=== PATIENT | female | born 1945 | race Caucasian/White ===

== ENCOUNTER → 2022-06-25 12:42 | Outpatient (CLI) | payer MEDICARE, OTHER, SELFPAY ==
[2022-06-25 13:30] LABS: Add Manual Diff / Slide Review NO; Basophils Absolute Auto 100 /uL (0-100); Basophils Percent Auto 0.7 % (0-2); Eosinophils Absolute Auto 100 /uL (0-450); Eosinophils Percent Auto 1.6 % (2-4); Hematocrit 38.8 % (36-46); Hemoglobin 13.1 g/dL (12.0-16.0); Lymphocytes Absolute Auto 1200 /uL (1100-4500); Lymphocytes Percent Auto 16.5 % (25-40); Mean Corpuscular HGB Conc 33.9 % (30-36); Mean Corpuscular Hemoglobin 30.5 PG (26-34); Mean Corpuscular Volume 90.2 fL (80-100); Monocytes Absolute Auto 400 /uL (0-900); Monocytes Percent Auto 6.3 % (3-14); Neutrophils Absolute Auto 5400 /uL (1500-7000); Neutrophils Percent Auto 74.9 % (50-75); Platelet Count 215 X10^3/uL (150-400); Red Blood Cell Count 4.31 X10^6/uL (4.0-5.2); Red Cell Distribution Width 14.7 % (11.6-14.8); White Blood Cell Count 7.2 X10^3/uL (4.5-11.0)
[2022-06-25 14:09] LABS: BUN Creatinine Ratio 25.4 (6-22); Blood Urea Nitrogen 17 mg/dL (7-17); Calcium 9.1 mg/dL (8.4-10.2); Carbon Dioxide 26 mmol/L (22-32); Chloride 102 mmol/L (98-107); Estimated Glomerular Filt Rate > 60 mL/min (>60); Glucose 117 mg/dL (80-110); HEMOLYSIS 32 (0-50); Potassium 4.3 mmol/L (3.4-5.1); Sodium 139 mmol/L (137-145)
== END ==
PROVIDERS: PCP Nurse Practitioner Family; Referring Provider Orthopaedic Surgery Orthopaedic Surgery of the Spine; Visit Provider Orthopaedic Surgery Orthopaedic Surgery of the Spine
DX: Z01.818 Encounter for other preprocedural examination (principal); Z01.812 Encounter for preprocedural laboratory examination
CPT/HCPCS: 36415; 80048; 85025; 93005

== ENCOUNTER 2022-07-23 07:39 | Inpatient (IN) | payer MEDICARE, OTHER, SELFPAY ==
[2022-07-12 09:42] VITALS: BMI 34.7
[2022-07-23] VITALS (15 sets, daily range): BP systolic 98–157; BP diastolic 45–80; PULSE 83–99; RESP 12–20; TEMP 36.6–37.5; O2SAT 90–98; BMI 34.7; BMI 36.8
--- NOTE | 2022-07-23 | DI.RAD.S_ITS ---
PROCEDURE: XR LUMBAR SPINE 2-3V INDICATIONS: L4-5 TLIF TECHNIQUE: Low resolution intraoperative fluoroscopic spot films of the lower lumbar spine COMPARISON: None. FINDINGS: Low resolution fluoroscopic spot films show instrumented L4-5 discectomy and fusion IMPRESSION: Fluoroscopic guidance Approved by: Haseeb El M.D. on 07/23/2022 at 17:13
[2022-07-23 08:11] LABS: COVID19 -Nasal RAPID Negative (Negative)
[2022-07-23] MEDS: LACTATED RINGERS 1,000 ML 42 ML IV ×2 (08:30→10:49)
--- NOTE | 2022-07-23 08:55 | PM.PREOP ---
Pre-operative Note COVID-19 COVID-19 status: Negative Result date/Date tested (Pos, Neg/Pending): 07/22/22 Criteria for continued procedure: Expected advancement of disease process, Possibility delay results in more complex future surgery or treatment, Increased loss of function, Continuing or worsening of significant or severe pain, Deterioration of the patient's condition or overall health and Delay expected to result in less-positive ultimate med/surg outcome Interval Note History & Physical reviewed/Exam performed by Physician: Yes Changes to H&P: No
[2022-07-23] MEDS: CEFAZOLIN 2 GM/100 ML PREMIX 100 ML IV ×2 (09:38→17:09)
--- NOTE | 2022-07-23 10:05 | SUR.OPER ---
Prone on spine table, head in foam head support, padded chest and pelvic supports, gel pad at knees, lower legs supported by pillows; nipples, genitalia and toes free of pressure, arms secured on foam padded arm boards at <90 degrees abduction. Tape over blanket at thigh secured to table.
[2022-07-23] MEDS: BUPIVACAINE LIPOSOME 266 MG/20 ML VIAL INJ (10:13)
[2022-07-23] MEDS: BUPIVACAINE 0.25% (PF) 30 ML, EPINEPHrine 0.3 MG INJ (10:13)
[2022-07-23] MEDS: BUPIVACAINE 0.25% (PF) VIAL 30 ML INJ (10:15)
--- NOTE | 2022-07-23 11:55 | P.OP_ITS ---
Operative Date/Time/Diagnoses Date of procedure: 07/23/22 Time of procedure: 10:00 Pre-op diagnosis: 1. L4-5 spondylolisthesis 2. L4-5 spinal stenosis Post-op diagnosis: same Procedure & Clinicians Procedure: 1. L4-5 Postero-lateral and posterior interbody fusion 2. L4-5 interbody cage placement. 3. L4-5 decompressive laminectomy with bilateral facetecomies 4. L4-5 Posterior non-segmental instrumentation 5. Oxford of bone marrow from iliac crest 6. Utilization of microsurgical technique and operating microscope Same procedure as scheduled: Yes Indications: Patient has been having chronic back pain and worsening lumbar radiculopathy. Patient failed multiple conservative management with worsening pain weakness and numbness in her lower extremity. Patient has been having difficulty performing activity of daily living. After discussing risks benefits of treatment options, patient elected proceed with surgery. Surgeon: Yoseph Brase[address] Train Driver: Graciela Smith Click Yes if Unassisted: No Anesthesia Type: General Operative Notes Closure Type: primary Specimen(s): none sent Prosthetic devices, grafts, tissues, transplants, or devices: Globus revolve screws, Rise cage Estimated Blood Loss (mL): 50 Blood products transfused: none Procedure in detail: Patient was seen in the preoperative area. Risks and benefits of the surgery was discussed with the patient. Informed consent was obtained from the patient and placed in the chart. Surgical site was marked. Patient was taken to the operative room. General anesthesia was administered. Prophylactic antibiotic was given to the patient less than 30 min before the incision was made. Patient was placed into a prone position on the Wayne table. Patient's back was then prepped and draped in the sterile fashion. Time-out was performed at this time. Using AP and lateral C-arm imaging the interval between L4-5 was identified and marked on patient's back. A 2 inch incision 2 in from midline was made on the left side first. The fascia was incised in line with skin incision. Globus MARS retractors was placed inside the incision and docked onto the L4 lamina. Using microsurgical technique and operating microscope, a L4 laminectomy and L4-5 facetectomy was performed using a Kerrison rongeur. The disc space at L4-5 was identified. And a total diskectomy was performed at L4-5 level. The endplates were decorticated using a rasp and shaver. The total diskectomy and decortication was performed at L4-5 level in order to to accomplish a L4-5 fusion. The local bone from the laminectomy and facetectomy was saved for local bone grafting. After the total diskectomy and decortication was completed, Trifecta bone graft material was combined with local bone that was harvested earlier. At this time, a separate skin is incision was made over the iliac crest. A Jamshidi needle was inserted into the iliac crest through a separate skin incision. 5 cc of bone marrow aspiration was obtained through the separate skin incision using a Jamshidi needle from the iliac crest. The bone marrow aspiration was combined with local bone and the Trifecta bone grafting material. The bone grafting material was placed into the L4-5 interbody space along with a expandable cage. The cage was expanded to its maximum height using the torque limiting screwdriver. At this time a mirror image incision was made on the right side. The fascia was incised in line with the skin incision. Globus MARS retractor was inserted and docked onto the L4-5 posterolateral gutter. Using the power drill, posterior- lateral decortication was performed at L4-5 level until bleeding cortical bone was identified. The remaining bone grafting material was placed into the L4-5 posterior lateral gutter he order to accomplish posterolateral fusion at the L4- 5 level. Using the double C-arm technique, pedicle screws were placed into the L4-5 pedicles bilaterally. This was done by placing the Jamshidi needle into the pedicles, then placing the guidewires over the Jamshidi needle, and finally placing the cannulated screws over the guidewires bilaterally. After the pedicle screws were placed, 2 titanium rods was locked into the heads of the pedicle screws using locking caps and torque limiting screwdriver. After all the hardware was placed, and confirmed with AP and lateral C-arm imaging, the wound was then irrigated with sterile normal saline and packed with Ray-Warren gauze for 3 min to accomplish hemostasis. After the gauze was removed the deep fascia was closed with #1 Vicryl suture. The subcutaneous layer was closed with 2-0 Vicryl. The skin was closed with skin daisy. Patient tolerated the procedure well. There were no complications. Complications: none Post-operative Condition: stable Disposition: PACU Plan for aftercare: Admit to inpatient hospital
[2022-07-23] MEDS: OXYCODONE/ACETAMINOPHEN 5/325 TABLET 1 TAB PO (12:08)
[2022-07-23] MEDS: fentaNYL 100 MCG/2 ML INJ IV ×2 (12:11→12:18)
--- NOTE | 2022-07-23 12:22 | SUR.PHASEI ---
rolled to left side, pt states some relief from pain being off back. dressing CDI
--- NOTE | 2022-07-23 12:43 | SUR.PHASEI ---
taken to room 204, report called. all belongings with patient
[2022-07-23] MEDS: HYDROMORPHONE 0.5 MG INJ IV ×2 (13:06→17:06)
[2022-07-23] MEDS: hydrOXYzine pamoate 25 MG CAPSULE PO (13:07)
--- NOTE | 2022-07-23 13:39 | PT-IP ANOTE ---
Patient lying in bed and at bedside. Pt just up to the floor. States cannot possibly get up at this point. Discussed care with patient and and stated with staffing, it likely will not be until tomorrow until they can be seen if they decline PT now. They agree with this plan, state there are no stairs in their home, they have a walker.
[2022-07-23] MEDS: ACETAMINOPHEN 325 MG TABLET 650 MG PO ×2 (13:42→19:06)
--- NOTE | 2022-07-23 15:25 | OT.IP.TRT ---
Current Diagnoses Spondylolisthesis, lumbar region (07/23/22) Spinal stenosis, lumbar region with neurogenic claudication (07/23/22) Surgery Performed Operation Date: 07/23/22 09:15 Actual Procedures p L4-5 TLIF - Yoseph Braswell MD Occupational Therapy Treatment Note M2 OT-IP Current Condition Start: 07/23/22 15:27 Freq: Status: Active Protocol: Document 07/23/22 14:37 [facility] (Rec: 07/23/22 15:55 [facility] [id number]) Occupational Therapy Current Condition Current Condition Evaluation Date 07/23/22 Treatment Diagnosis S/p TLIF Diagnosis Onset Date 07/23/22 Post Operative Precautions Lumbar Precautions Log Roll,No Twisting,Limit Bending,Lifting Restriction of 10 lbs,Gait Belt above Incisional Area M3 OT- IP Subjective and Pain Start: 07/23/22 15:27 Freq: Status: Active Protocol: Document 07/23/22 14:37 [facility] (Rec: 07/23/22 15:55 [facility] [id number]) OT- Subjective Occupational Therapy Visit Type Type Treatment Note Visit Start Time 14:37 Visit Stop Time 15:20 Total Visit Minutes 43 Occupational Therapy Visit Comments Patient Comments Pt agreed to try to get up again as just got in bed from use of BSC with nursing. Patient/Caregiver Goals TO go home. OT Pain Assessment Pain When Pain Assessed At Rest Pain Present Pain Present Pain Reported Location Back Intensity 6 Scale Used Numeric (0 - 10) M4 OT- IP ADL's Start: 07/23/22 15:27 Freq: Status: Active Protocol: Document 07/23/22 14:37 [facility] (Rec: 07/23/22 15:55 [facility] [id number]) OT [id number] Comments OT Self-Feeding Comments not at meal time OT ADL-Grooming Comments OT Grooming Comments not able to perform OT ADL-Oral Care Comments Oral Care Comments Educated best to spit into a cup or hinge at her hips to best follow her back precautions. OT ADL-Dressing Comments OT Dressing Comments Pt typically cross her legs for dressing needs but will now benefit from assist and LB dressing equipment. OT ADL-Toileting Comments OT Toileting Comments Wayne states from pt's side of the bed is 15 ft to the toilet and not able to get the FWW into the bathroom. Therefore discussed maybe best to just get a BSC and have it placed next to the bed. Pt wears a Depends at night and gets up 2 times at night. OT ADL-Bathing Comments OT Bathing Comments Pt has a shower chair for the tub. M5 OT- IP IADL's Start: 07/23/22 15:27 Freq: Status: Active Protocol: Document 07/23/22 14:37 [facility] (Rec: 07/23/22 15:55 [facility] [id number]) OT-Instrumental Activities of Daily Living Home Safety Awareness Home Safety Comments Pt's has a very supportive that will assist with her needs. M6 OT- IP Functional Cognition Start: 07/23/22 15:27 Freq: Status: Active Protocol: Document 07/23/22 14:37 [facility] (Rec: 07/23/22 15:55 [facility] [id number]) Cognitive Factors Limiting Selfcare Function Cognitive Ability Level of Alertness Drowsy Patient Orientation Name,Place,Situation Attention Span Ability Capable of Focused Attention, Capable of Sustained Attention Cognitive Comments Cognitive Assessment Comments Initially pt alert and then after several minutes quiet and not feeling well BP stable 113/57, O2 on 2L and at 96%. Pt's nurse come in to check on the pt and determined to connect her back to the IV, pt proceeded to fall asleep. M9 OT- IP Assessment and Plan Start: 07/23/22 15:27 Freq: Status: Active Protocol: Document 07/23/22 14:37 [facility] (Rec: 07/23/22 15:55 [facility] [id number]) OT Summary Assessment and Plan Summary Assessment Summary Tried to do OT eval with pt but pt looking pale and not feeling well. Nursing able to come to check on the pt. Pt then proceeding to fall asleep . Able to initially go over ADl needs with Pt and her of getting a BSC, use of LB dressing equipment- before pt feeling not well and eventually fell asleep. Afterwards able to educate pt' s how to kirby/doff the gait belt, did bed mobility with pt's on the bench seating so pt's aware of the technique for log rolling and how to assist. Went over hand placement how to come up to standing and sitting back down, in addition to always have the FWW in front. Also able to go over car transfers with pt's . Unable to do formal OT eval with pt therefore no charge for OT eval and will charge under OT treatment. Able to set-up time for pt's to work with PT tomorrow at 9am.
[2022-07-23] MEDS: OXYCODONE IR 10 MG TABLET PO ×3 (15:47→22:56)
[2022-07-23] MEDS: GABAPENTIN 300 MG CAPSULE PO ×2 (15:48→20:15)
[2022-07-23] MEDS: LACTATED RINGERS 1,000 ML 100 ML IV (17:00)
[2022-07-23] MEDS: CREON 2 EACH PO (17:09)
[2022-07-23] MEDS: PANTOPRAZOLE DR 20 MG TABLET PO (17:27)
--- NOTE | 2022-07-23 19:45 | PC.NURSE ---
Pt arrived from PACU at approximately 1300 A&OX4. VSS, afebrile on 2 LNC. She reports pain well controlled with prn medications. She is able to tolerate lunch and dinner and get up to bsc. dressing to back C/D/I. Bed alarm on, SCDS on.call light in reach. LR at 100 ml/hr. She is using IS.Continuous monitoring.
[2022-07-23] MEDS: LOSARTAN 50 MG TABLET PO (21:29)
[2022-07-23] MEDS: DOCUSATE 100 MG CAPSULE PO (21:30)
[2022-07-23] MEDS: SENNOSIDES 8.6 MG TABLET 17.2 MG PO (21:30)
[2022-07-23] MEDS: TRAZODONE 50 MG TABLET 100 MG PO (22:56)
[2022-07-24] MEDS: ACETAMINOPHEN 325 MG TABLET 650 MG PO ×3 (00:56→11:40)
[2022-07-24] MEDS: CEFAZOLIN 2 GM/100 ML PREMIX 100 ML IV (00:57)
[2022-07-24 03:19] VITALS: BP 129/69; PULSE 81; RESP 18; TEMP 36.6; O2SAT 97
[2022-07-24] MEDS: OXYCODONE IR 10 MG TABLET PO ×2 (06:20→09:41)
[2022-07-24] MEDS: CREON 2 EACH PO ×2 (07:48→11:43)
[2022-07-24] MEDS: PANTOPRAZOLE DR 20 MG TABLET PO (07:48)
[2022-07-24 08:33] VITALS: BP 126/69; PULSE 85; RESP 17; TEMP 36.3; O2SAT 94
[2022-07-24 09:41] VITALS: BP 126/69; PULSE 85
[2022-07-24] MEDS: LOSARTAN 50 MG TABLET PO (09:41)
[2022-07-24] MEDS: ESCITALOPRAM 10 MG TABLET PO (09:41)
[2022-07-24] MEDS: polyethylene glycoL 3350 17 GM POWD.PACK PO (09:42)
[2022-07-24] MEDS: DOCUSATE 100 MG CAPSULE PO (09:42)
[2022-07-24] MEDS: GABAPENTIN 300 MG CAPSULE PO (09:42)
--- NOTE | 2022-07-24 10:17 | PT.IIE ---
Current Diagnoses Spondylolisthesis, lumbar region (07/23/22) Spinal stenosis, lumbar region with neurogenic claudication (07/23/22) Surgery Performed Operation Date: 07/23/22 09:15 Actual Procedures p L4-5 TLIF - Yoseph Braswell MD Surgical History (Last Updated 07/12/22 @ 11:07 by Anna Carver, RN) History of esophagogastroduodenoscopy (EGD) History of hysterectomy History of surgery (03/2016) History of surgical procedure Hx of arthroscopy of right knee Hx of bilateral cataract extraction (2020) Hx of colonoscopy Hx of tonsillectomy Hx of tubal ligation S/P epidural steroid injection Medical History (Last Updated 07/12/22 @ 11:07 by Anna Carver, RN) Anxiety Asthma 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 Depression Diverticulosis DVT (deep venous thrombosis) (~2016) GERD (gastroesophageal reflux disease) History of COVID-19 (10/2021) HTN (hypertension) Palpitations Pancreatic cancer (2015) Pericarditis Presence of device Pulmonary embolism (~2016) Sleep apnea Spinal stenosis Physical Therapy Inpatient Evaluation/Re-Eval M1 PT/OT-IP Prior Functional Status Start: 07/23/22 13:39 Freq: NEEDED Status: Active Protocol: Document 07/24/22 09:46 [facility] (Rec: 07/24/22 10:10 [facility] [id number]) Medical Review Prior Functional Status Communication independent Activities of Daily Living and IADL's Pt able to do ADl needs but had pain. Social History Household Members spouse Living Arrangements Mobile home Number of Floors (Floors) One Floor Number of Stairs To Enter/Railing? ramp to enter Home Environment High Toilet,Tub/Shower,Ramp Home Equipment Front Wheel Walker,Four Wheel Walker,Grab Bars Near Toilet Employment Status Retired Additional Social History Comment Pt typically gets out of the left side of the bed. Pt has a supportive , Wayne. Wayne states he has back issues himself but still able to provide some lifting assist to pt as needed. Pt had difficulty lifting legs to get into tub/shower. M2 PT-IP Current Condition Start: 07/23/22 13:39 Freq: NEEDED Status: Active Protocol: Document 07/24/22 09:46 [facility] (Rec: 07/24/22 10:10 [facility] [id number]) Physical Therapy Current Condition Current Condition Evaluation Date 07/24/22 Treatment Diagnosis s/p TLIF Onset Date 07/23/22 M3 PT-IP Subjective Start: 07/23/22 13:39 Freq: NEEDED Status: Active Protocol: Document 07/24/22 09:46 [facility] (Rec: 07/24/22 10:10 [facility] [id number]) Subjective Physical Therapy Visit Type Type Initial Evaluation Visit Start Time 09:07 Visit Stop Time 09:46 Total Visit Minutes 39 Physical Therapy Visit Comments Patient Comments States she has been up with nursing. Sat on bed for breakfast. Patient Goals Pt goal is to go home today or tomorrow. Therapy Pain Assessment Pain When Pain Assessed At Rest Pain Present Pain Present Pain Reported Location Back Intensity 2 Scale Used Numeric (0 - 10) Pain Management Techniques Apply Cold M4 PT-IP Mobility and Gait Start: 07/23/22 13:39 Freq: NEEDED Status: Active Protocol: Document 07/24/22 09:46 [facility] (Rec: 07/24/22 10:10 [facility] [id number]) PT-Bed Mobility Assessment Rolling Type of Rolling Log Rolling Level of Assist Contact Guard Assistance Supine to Sit Supine to Sit Contact Guard Assistance, Minimal Assistance Sit to Supine Sit to Supine Contact Guard Assistance, Minimal Assistance Scooting Scooting to Edge of Bed Independent,Standby Assistance PT-Transfer Assessment Sit to and From Stand Sit to and from Stand Standby Assistance Equipment Transfer Assistive Device Gait Belt,Front Wheeled Walker Orthotic/Prosthetic Devices or Brace: No Transfers Transfer Destination Bed Transfer Technique Walked to and from bed Transfer Ability Level of Assist Standby Assistance,Contact Guard Assistance Comments Mobility Comments Pt required many standing rests to reposition body to upright. Gait Assessment Gait Gait Assistance Required: Standby Assistance Distance (Feet) 110 Able to Maintain Weight Bearing Status Yes During Gait Assistive Devices Assistive Device Gait Belt,Front Wheeled Walker Orthotic/Prosthetic Devices or Brace: No Gait Deviations General Gait Pattern Decreased Stride Length, Decreased Feet Clearance, Flexed Trunk Factors Limiting Gait Function Factors Limiting Gait Function Decreased Activity Tolerance, Pain Comments Gait Comments Pt ambulated slow and cautious , stopping every 6-8' to stand upright and reposture due to mildly leaning into FWW for balance support. Pt did not note an increase in pain, but noted pt appeared fatigued. PT-Balance Assessment Sitting Balance and Reactions Static Sitting Balance Ability Good Dynamic Sitting Balance Ability Good Standing Balance and Reactions Static Standing Balance Ability Good Dynamic Standing Balance Ability Good Device Used FWW M5 PT-IP Objective Assessments Start: 07/23/22 13:39 Freq: NEEDED Status: Active Protocol: Document 07/24/22 09:46 [facility] (Rec: 07/24/22 10:10 [facility] [id number]) Orientation Orientation/Cognition Level of Alertness Alert Orientation Name,Month,Date,Year,Place, Situation Language Function Ability No Deficits Noted Safety Awareness Understands Safety Issues Comments Pt able to recall 3/3 movement precautions: No forced bending, no twisting, no lifting heavy (>10# reviewed), log roll. Gross Range of Motion Upper Extremity ROM Assessment Within Functional Limits Lower Extremity ROM Assessment Within Functional Limits Strength Upper Extremity Strength Assessment Within Functional Limits Lower Extremity Strength Assessment Within Functional Limits Sensation Assessment Sensation Gross Sensation WNL Muscle Tone Muscle Tone WNL Yes Other Assessments Other Other Assessments Pt appeared to be following movement precautions. M6 PT-IP Treatment Start: 07/23/22 13:39 Freq: NEEDED Status: Active Protocol: Document 07/24/22 09:46 [facility] (Rec: 07/24/22 10:10 [facility]N [id number]) Physical Therapy Treatment Education Education Provided Post-Op Packet Other Treatments Other Treatment Performed Pt spouse present throughout Eval/treatment. Reviewed precaution not to force bend at trunk when moving legs in/out of tub. Reviewed transfer options of getting into tub in standing and sitting in tub chair positions. Recommended pt avoid prolonged sitting greater than 30 minutes. Transfer training for log rolling and sidelie<>sit<> stand. M7 PT-IP Assessment and Plan Start: 07/23/22 13:39 Freq: NEEDED Status: Active Protocol: Document 07/24/22 09:46 [facility] (Rec: 07/24/22 10:10 [facility]N [id number]) PT Summary Assessment and Plan Potential Rehabilitation Potential Excellent Status of Condition at Evaluation Evolving Summary Impairments Pain,Bed Mobility,Transfers, Activity Tolerance Assessment Summary Pt seen po day 1 for initial eval. Pt required trainingand min assist for proper transfers in/out of bed with spouse present to observe for helping at home. Pt did very well and showed minimal signs of movement restriction due to pain. The pt pt was able to ambulate 100+ feet with frequent standing rest stops and appeared very aware of her posture with recorrection of her mild leaning forward during gait. The pt required very little assist to get back in bed and demonstrated good independent bed mobility. The pt's pain appears well controlled and she has a very supportive who understands how he can assist the patient at home. The pt might benefit from another day of review for bed mobility and transfers, but is quite safe currently with ability to mobilize (although not independent and will need spouse to asssit), and ambulate if she chooses to DC home today. Goals Bed Mobility Goal Contact Guard Assistance, Minimal Assistance Transfer Goal Contact Guard Assistance, Minimal Assistance Gait Goal Standby Assistance Gait Distance 100+ feet Days to Meet Goals 1 Frequency of Treatment Frequency Of Treatment Twice a Day Treatment Plan Physical Therapy Treatment Plan Bed Mobility Training,Transfer Training,Gait Training,Post Op Education Precautions Lumbar Precautions Log Roll,No Twisting,Limit Bending,Lifting Restriction of 10 lbs,Gait Belt above Incisional Area Weight Bearing Status Weight Bearing Status Weight Bear as Tolerated Recommendations To Nursing Amount of Assist Needed Standby Assistance,1 Person Assist Discharge Recommendations PT Discharge Recommendations Home with Assistance Other Discharge Recommendations Spouse to assist at home. Transportation Needs at Discharge Private Vehicle
--- NOTE | 2022-07-24 11:12 | PM.DS.1 ---
History of Present Illness History of Present Illness Date Patient Seen: 07/24/22 Time Patient Seen: 11:12 Chief complaint: INPT Narrative: Operative Date/Time/Diagnoses Date of procedure: 07/23/22 Time of procedure: 10:00 Pre-op diagnosis: 1. L4-5 spondylolisthesis 2. L4-5 spinal stenosis Post-op diagnosis: same Procedure & Clinicians Procedure: 1. L4-5 Postero-lateral and posterior interbody fusion 2. L4-5 interbody cage placement. 3. L4-5 decompressive laminectomy with bilateral facetecomies 4. L4-5 Posterior non-segmental instrumentation 5. Webster of bone marrow from iliac crest 6. Utilization of microsurgical technique and operating microscope Same procedure as scheduled: Yes Indications: Patient has been having chronic back pain and worsening lumbar radiculopathy. Patient failed multiple conservative management with worsening pain weakness and numbness in her lower extremity.? Patient has been having difficulty performing activity of daily living.? After discussing risks benefits of treatment options, patient elected proceed with surgery. Surgeon: Yoseph Braswell [employer] Projects Lead: Graciela Smith Click Yes if Unassisted: No Anesthesia Type: General Operative Notes Closure Type: primary Specimen(s): none sent Prosthetic devices, grafts, tissues, transplants, or devices: Globus revolve screws, Rise cage Estimated Blood Loss (mL): 50 Blood products transfused: none Discharge Providers Provider Date of admission: 07/23/22 07:39 Discharge Date: 07/24/22 Primary care physician: SALLY Maradiaga Consults: 07/23/22 12:48 Consult to Occupational Therapy Evaluate & Treat Comment: Physician Instructions: Evaluate and treat Consult to Physical Therapy Evaluate & Treat Comment: Physician Instructions: Evaluate and Treat Discharge provider: Lanette Samuels PA-C Summary Hospital Course Discharge Diagnosis: L4-5 spinal stenosis and spondylolisthesis, s/p L4-5 fusion Hospital Course: Ms Gibson's hospital course was unremarkable. On the morning of POD# 1, she was feeling well but wasn't sure whether or not she wanted to go home. She was eating and voiding without difficulty and her pain was well-controlled with oral medication. She was evaluated by PT and felt to be safe for homegoing. Exam Vital Signs (past 8 hours): - 07/24/22 03:19 07/24/22 08:33 07/24/22 09:41 Temperature 97.9 F 97.4 F L Pulse Rate 81 85 85 Respiratory Rate 18 17 Blood Pressure 129/69 126/69 126/69 Pulse Oximetry 97 94 Oxygen Flow Rate 3 0 Fraction of Inspired Oxygen 93 Oxygen Delivery Method Nasal Cannula Oxygen Flow Rate 0 Narrative Exam Narrative: 5/5 strength in quadriceps, hamstrings, DF, PF, EHL bilaterally. Sensation to light touch intact throughout BLE. Calves soft, compressible, nontender and without palpable cords or masses. Intraoperative dressing CDI. [facility] Medical History (Updated 07/12/22 @ 11:07 by Anna Carver RN) Anxiety Asthma Current use of [facility] Depression Diverticulosis DVT (deep venous thrombosis) (~2016) GERD (gastroesophageal reflux disease) History of COVID-19 (10/2021) HTN (hypertension) Palpitations Pancreatic cancer (2015) Pericarditis Presence of device Pulmonary embolism (~2016) Sleep apnea Spinal stenosis Surgical History (Updated 07/24/22 @ 11:19 by Lanette Samuels PA-C) History of esophagogastroduodenoscopy (EGD) History of hysterectomy History of surgery (03/2016) History of surgical procedure Hx of arthroscopy of right knee Hx of bilateral cataract extraction (2020) Hx of colonoscopy Hx of tonsillectomy Hx of tubal ligation S/P epidural steroid injection Social History household members: spouse Smoking Status: Never smoker alcohol intake: former Discharge Assessment & Plan Assessment and Plan Assessment: L4-5 spinal stenosis and spondylolisthesis, s/p L4-5 fusion H/o DVT and PE Plan of Treatment: Discharge home later today if pt feeling confident about ambulation and pain control. Will restart Xarelto today. Follow up in office in 2 weeks. Discharge Plan Discharge Plan Patient Disposition: Home Discharge orders & Medications Prescriptions: New oxycodone 5 mg tablet 5 mg PO Q4H PRN (Reason: pain, severe) Qty: 60 0RF acetaminophen 325 mg Tablet 650 mg PO Q6H PRN (Reason: fever or pain) Qty: 240 0RF docusate sodium 100 mg Capsule 100 mg PO BID PRN (Reason: constipation) Qty: 60 2RF hydroxyzine pamoate 25 mg Capsule 25 mg PO Q4HR PRN (Reason: muscle spasm) Qty: 120 0RF Continued losartan 50 mg Tablet 50 mg PO BID lorazepam 0.5 mg Tablet 0.5 - 1 mg PO DAILY PRN (Reason: Anxiety) trazodone 100 mg Tablet 100 mg PO BEDTIME gabapentin 300 mg Capsule 300 mg PO TID cyclobenzaprine 5 mg Tablet 5 mg PO TID PRN (Reason: Muscle Spasm) omeprazole 20 mg Tablet,Delayed Release (Dr/Ec) 20 mg PO BID Creon 24,000-76,000 -120,000 unit Capsule,Delayed Release(Dr/Ec) 2 cap PO TID Rx Instructions: administer with meals and/or snacks Xarelto 20 mg Tablet 20 mg PO QPM Rx Instructions: must administer with evening meal escitalopram oxalate 10 mg Tablet 10 mg PO DAILY Follow up/Referrals: Daniel Avila ARNP [Primary Care Provider] - Yoseph Braswell MD [Physician] - As previously scheduled (Follow up w/ Lynn Villatoro PA-C, on 08/06/2022 @ 10:30 am at [facility] in [place].) Diet/Activity/Treatments Diet: Diet as Tolerated Activity: No deep bending or twisting at the waist. No lifting more than 10 pounds. Cold/Heat Therapy: Heating pad to low back as needed for pain. Skin/Wound/Dressing Care Report to your healthcare provider any signs of infection, such as:: chills, fever, night sweats, unusual drainage and unusual redness Dressing: May shower; keep dressing as dry as possible. If dressing becomes wet or dirty inside, may remove and replace with clean, dry gauze. No bathing or otherwise soaking incisions. Do not apply any creams, lotions, or ointments to incisions. Visit Report/Discharge Packet Instructions: DI for Prescription Opioid Use, DI for Transforaminal Lumbar Interbody Fusion Stand Alone Forms: Patient Portal/API, Stroke Signs & Symptoms, Surgery Discharge Discharge Data Primary Care Provider: Daniel Avila Quality VTE Deep Vein Thrombosis/Pulmonary Embolism Present on Admission: No
[2022-07-24 11:43] VITALS: BP 127/69; PULSE 81; RESP 16; TEMP 36.8; O2SAT 92
--- NOTE | 2022-07-24 15:28 | CM.DPNOTE ---
DC Note Discharge home today as planned by patient; cleared by therapy for this plan. No CM needs identified Home w/family and close outpatient follow up JW
== END 2022-07-24 13:00 | disposition home or self-care (01) | DRG 455 ==
PROVIDERS: Admitting Provider Orthopaedic Surgery Orthopaedic Surgery of the Spine; PCP Nurse Practitioner Family; Referring Provider Orthopaedic Surgery Orthopaedic Surgery of the Spine; Visit Provider Orthopaedic Surgery Orthopaedic Surgery of the Spine
PROC: 0SG00AJ Fusion of Lumbar Vertebral Joint with Interbody Fusion Device, Posterior Approach, Anterior Column, Open Approach (ICD-10-PCS; principal; 2022-07-23 09:15)
DX: M43.16 Spondylolisthesis, lumbar region (principal); M48.061 Spinal stenosis, lumbar region without neurogenic claudication; M54.16 Radiculopathy, lumbar region; I10 Essential (primary) hypertension; F41.9 Anxiety disorder, unspecified; F32.A Depression, unspecified; K21.9 Gastro-esophageal reflux disease without esophagitis; Z79.01 Long term (current) use of anticoagulants; Z86.718 Personal history of other venous thrombosis and embolism; Z20.822 Contact with and (suspected) exposure to COVID-19; Z86.711 Personal history of pulmonary embolism
CPT/HCPCS: 72100; 76000; 87635; 94760; 97162; 97530; 97535; C9803; C1713; C1831; C9290; J0171; J0330; J0690; J1100; J1170; J2250; J2405; J2704; J3010; J3490

== ENCOUNTER → 2023-08-12 11:50 | Outpatient (CLI) | payer MEDICARE, OTHER, SELFPAY ==
[2022-07-23 12:58] VITALS: BMI 36.8
[2023-08-12 12:25] LABS: Add Manual Diff / Slide Review NO; Basophils Absolute Auto 100 /uL (0-100); Eosinophils Absolute Auto 100 /uL (0-450); Eosinophils Percent Auto 1.6 % (2-4); Hematocrit 39.7 % (36-46); Hemoglobin 13.3 g/dL (12.0-16.0); Lymphocytes Absolute Auto 1300 /uL (1100-4500); Lymphocytes Percent Auto 18.4 % (25-40); Mean Corpuscular HGB Conc 33.4 % (30-36); Mean Corpuscular Hemoglobin 30.6 PG (26-34); Mean Corpuscular Volume 91.5 fL (80-100); Monocytes Absolute Auto 600 /uL (0-900); Monocytes Percent Auto 8.8 % (3-14); Neutrophils Absolute Auto 5000 /uL (1500-7000); Neutrophils Percent Auto 70.2 % (50-75); Platelet Count 205 X10^3/uL (150-400); Red Blood Cell Count 4.34 X10^6/uL (4.0-5.2); Red Cell Distribution Width 14.3 % (11.6-14.8); White Blood Cell Count 7.1 X10^3/uL (4.5-11.0)
[2023-08-12 12:35] LABS: Albumin 4.6 g/dL (3.5-5.0); BUN Creatinine Ratio 21.4 (6-22); Blood Urea Nitrogen 15 mg/dL (7-17); Calcium 9.7 mg/dL (8.4-10.2); Carbon Dioxide 29 mmol/L (22-32); Chloride 105 mmol/L (98-107); Estimated Glomerular Filt Rate > 60 mL/min (>60); Glucose 89 mg/dL (80-110); HEMOLYSIS < 15 (0-50); Potassium 4.9 mmol/L (3.4-5.1); Sodium 139 mmol/L (137-145)
[2023-08-12 12:43] LABS: Prealbumin 22.4 mg/dL (17.6-36.0)
[2023-08-12 12:52] LABS: Vitamin D 25 Hydroxy (D3) 69.3 ng/mL (30.0-100.0)
== END ==
LOC: RESP 11:52
PROVIDERS: PCP Nurse Practitioner Family; Referring Provider Orthopaedic Surgery Adult Reconstructive Orthopaedic Surgery; Visit Provider Orthopaedic Surgery Adult Reconstructive Orthopaedic Surgery
DX: Z01.818 Encounter for other preprocedural examination (principal); R73.9 Hyperglycemia, unspecified; E55.9 Vitamin D deficiency, unspecified; R77.0 Abnormality of albumin; Z01.812 Encounter for preprocedural laboratory examination
CPT/HCPCS: 36415; 80048; 82040; 82306; 83036; 84134; 85025; 93005

== ENCOUNTER 2023-09-02 09:18 | Day surgery (SDC) | payer MEDICARE, OTHER, SELFPAY ==
[2022-07-23 12:58] VITALS: BMI 36.8
[2023-08-23 13:20] VITALS: BMI 33.3
[2023-09-02] VITALS (9 sets, daily range): BP systolic 127–157; BP diastolic 59–82; PULSE 77–83; RESP 11–18; TEMP 36.2–36.9; O2SAT 91–97; BMI 33.3
--- NOTE | 2023-09-02 06:00 | DI.RAD.S_ITS ---
PROCEDURE: XR KNEE RT 1TO2V INDICATIONS: TKA TECHNIQUE: 2 view(s) of the knee acquired. COMPARISON: None. FINDINGS: Bones: Patient is status post knee joint arthroplasty. Hardware components are in expected positions. Visualized bony structures are intact. Soft tissues: Overlying postoperative changes are noted. IMPRESSION: Expected post-operative appearance of a knee arthroplasty. Dictated by: Gautam Kincaid M.D. on 09/02/2023 at 14:09 Approved by: Gautam Kincaid M.D. on 09/02/2023 at 14:10
[2023-09-02] MEDS: LACTATED RINGERS 1,000 ML 42 ML IV ×2 (10:04→12:35)
[2023-09-02] MEDS: SODIUM CHLORIDE 0.9% FLUSH 10 ML IV (10:29)
--- NOTE | 2023-09-02 10:29 | PM.PREOP ---
Pre-operative Note Interval Note History & Physical reviewed/Exam performed by Physician: Yes Changes to H&P: No
[2023-09-02] MEDS: ACETAMINOPHEN 325 MG TABLET 975 MG PO (10:41)
[2023-09-02] MEDS: CEFAZOLIN 2 GM/100 ML PREMIX 100 ML IV ×2 (10:58→18:22)
--- NOTE | 2023-09-02 11:18 | SUR.OPER ---
Supine on padded OR bed. Pillow under head, arms secured on padded armboards <90 degree abduction. Safety belt across torso. Non-operative leg secured with tape over blanket over lower leg. Operative leg secured in Art BOOT. Foam padded brace at thigh of operative leg.
[2023-09-02] MEDS: TRANEXAMIC ACID 1,000 MG VIAL 1000 MG INJ (11:22)
[2023-09-02] MEDS: BUPIVACAINE LIPOSOME 266 MG/20 ML VIAL INJ (12:28)
[2023-09-02] MEDS: BUPIVACAINE 0.25% (PF) 30 ML, EPINEPHrine 0.15 MG INJ (12:28)
--- NOTE | 2023-09-02 13:09 | P.OP_ITS ---
Operative Date/Time/Diagnoses Date of procedure: 09/02/23 Pre-op diagnosis: Right knee osteoarthritis Post-op diagnosis: same Procedure & Clinicians Procedure: Right total knee arthroplasty Same procedure as scheduled: Yes Surgeon: Haseeb Patrick [employer] Foreman: Andreina Hu Anesthesia Type: Spinal, Peripheral nerve block and Local Operative Notes Estimated Blood Loss (mL): 150 Procedure in detail: Right Gap-Balanced Medial-Congruent Primary Total Knee Arthroplasty Implants: Layla Persona Medial Congruent Total Knee Arthroplasty: * Size 9 narrow Cruciate Retaining Femoral Component * Size D Tibial Component with 14 x 30 stem extension * Size 16 Medial Congruent Polyethylene Insert * 32 mm Patella Procedure Summary: This 78-year-old female patient had a valgus knee with severe wear in the lateral compartment. Her patella had become concave secondary to her extreme lateral wear and the lateral femoral condyle had become essentially completely spherical. Because the lack of convexity of the patella I resurfaced it. Following distal femur and proximal tibia cuts I was unable to fit the 10 spacer block in the knee so I resected an additional 2 off of the proximal tibia. I w as then able to fit in the 10 spacer block. I noted significant tightness laterally so a posterior lateral release was performed and the ITB band was pie crusted. This improved her symmetry to the point that she had 1 mm of tightness on the lateral side relative to the medial side. During trialing I determined that the gap balance and symmetry were appropriate, enabling me to proceed with a MC articulation rather than a CPS articulation. I cemented with a 13 mm polyethylene and was able to go up to 16 mm for the final insert which closed down the residual medial laxity in extension relative to the lateral side. The lateral side was able to accommodate this. She had full extension, good balanced between the lateral and medial compartments in both extension and flexion, and was able to passively flex her knee so that her heel impacted her buttock prior to wound closure. Procedure in Detail: This patient was seen preoperatively and evaluated for knee pain which was refractory to numerous nonoperative treatment modalities. Their pain correlated with radiographic changes demonstrating significant degeneration in the knee joint. The risks and benefits of continued nonoperative management versus operative management were discussed at length and all of the patient?s questions were answered. Additional educational materials providing further details beyond our discussion in clinic were provided via a publicly available patient education video which included the incidence of medical complications associated with total knee arthroplasty, reasons for revision following total knee arthroplasty, and patient satisfaction rates following total knee arthroplasty. That video can be accessed at [email or web address] . With this understanding of the risks inherent to the procedure, the patient elected to move forward with operative management. Following preoperative optimization, the patient was scheduled for surgery. The patient was met in the preoperative holding area the day of the procedure and all questions were answered. The patient?s nares were swabbed with betadine in order to decolonize them from MRSA. Informed consent was signed and the operative limb was marked with indelible ink.? The patient was brought back to the operating room where anesthesia was induced. The patient was transferred to the operating table and all bony prominences were padded. The operative site was prepped and draped in the usual sterile fashion. A second prep stick was utilized following drape placement. The incision was marked corresponding to the medial aspect of the tibial tubercle and the patella. Ioban was wrapped circumferentially around the knee. Prior to incision, tranexamic acid and cefazolin were administered. Templating images were displayed. A timeout procedure was performed verifying the patient?s identity, medical comorbidities, allergies, relevant medications, anesthesia type and the surgical plan. All present were in agreement. The assistance of a physician land surveyor assistant was required for positioning, room setup, soft tissue retraction and wound closure. Without this assistance, the procedure would have been significantly more challenging and time consuming.?? The tourniquet was inflated prior to incision. I made an anterior incision over the knee, dissected through the subcutaneous tissues and identified the lateral border of the VMO. Medial and lateral soft tissue flaps were developed. A medial parapatellar arthrotomy was performed ensuring that adequate capsular tissue would remain for closure at the conclusion of the procedure. The hip was brought into extension and the medial soft tissues were released off the joint line of the tibia. Tissue overlying the distal anterior femur was released to allow for later assessment for anterior notching but left in place. A portion of the retropatellar fat pad was excised while protecting the patellar tendon. The patella was everted. The patella was resurfaced. Calipers were utilized to measure the resected patella which was cut to 14 mm. Osteophytes were excised and a lateral facetectomy was performed. The patella was released from its everted position.?? I flexed the knee to 90 degrees and placed retractors to allow access to the notch. An opening reamer was used to gain access to the femoral canal and an intramedullary jun was introduced into the canal. Diaphyseal fit was obtained in order to allow a distal femoral resection at 5 degrees relative to the anatomic axis, thereby aiming to achieve mechanical alignment of the eventual implant. A +2 resection was planned and assessed using an meely wing. I then made the cut using a sagittal saw. This provided additional access to the femoral notch. The ACL and PCL were excised. Retractors were placed on the lateral and medial tibia. I hyperflexed the knee while externally rotating it to sublux the tibia anteriorly. I placed a PCL retractor posteriorly and used this to provide additional anterior subluxation. The remainder of the PCL root was released. An intramedullary reamer was used in the ACL footprint to provide access to the tibial canal. An extramedullary guide was positioned to allow a resection perpendicular to the anatomic and mechanical axes of the tibia, thereby aiming to achieve mechanical alignment of the eventual implant. A +4 resection off the lateral tibia was planned and the tibial cutting jig was pinned in place. I evaluated the cut depth, varus-valgus alignment and slope of the planned tibial resection and deemed them satisfactory. I cut the tibia with a sagittal saw while using retractors to protect the MCL, patellar tendon, and posterolateral structures.? The knee was repositioned in extension and the Fuzion soft tissue balancing gauge was introduced. This demonstrated that the knee would open to 9 medially and 3 laterally. I therefore performed a posterolateral release by using a herndon elodia animal pathology teacher to spread the femur and tibia apart in extension, introducing a tonsil to dissect out the posterolateral capsule, and incising it with a long- handled knife. I also pie crusted the ITB band. This improved the symmetry so that it opened to 7 laterally and 9 medially. When 50 pounds of force was applied to the Fuzion device, the extension gap opened to 10 mm. I moved the knee into 90 degrees of flexion, and the Fuzion device was recalibrated by removing a 9 mm stephen to allow assessment of the flexion gap. The Fuzion was placed perpendicular to the resected surface of the tibia and the resected surface of the distal femur. Fifty pounds of traction was applied to match the tension of the extension gap. This externally rotated the femur to 3 degrees. Pins were placed in the 10 mm holes. The measured resection guide was placed over the pins to allow sizing. Appropriate sizing was determined and a 4-in-1 block was placed. This was double checked using the Fuzion device to ensure that it would open to an equal distance as the extension gap when the same amount of force was applied. The Fuzion block was also used to assess flexion gap symmetry. An emely wing was used to ensure there would be no anterior notching. Retractors were placed to protect the soft tissues during resection. Captured cuts were performed with a sagittal saw for the anterior and posterior femur as well as the corresponding chamfers.? Trial components were placed and the construct was assessed. Range of motion was assessed by ensuring the knee could achieve full extension and assessing maximum passive knee flexion by elevating the femur and allowing the heel to passively fall towards the buttock. Gap symmetry was assessed by stressing the medial and lateral compartments in both extension and flexion. Laxity was assessed in both extension and flexion and the polyethylene trial was adjusted with shims as necessary. Patellar tracking was assessed with knee flexion. Once satisfied with the construct, I moved forward with implant insertion. Lug holes were drilled in the femur and the tibia was prepped ensuring appropriate sizing and rotation relative to the tibial tubercle.?? The bony ends were irrigated and cement was prepared. Portions of the anterior chamfer cut were utilized as cement restrictors in the femur and tibia where intramedullar rods had been utilized. Cement was placed on the entirety of the undersurface of both the tibial and femoral components. Cement was placed onto the dry tibia and pressurized into the cancellous bone. I impacted the tibial component into place. Cement was removed. The tibia was reduced underneath the femur and placed cement onto the dry surface of the resected femur. I placed the femoral component as well as the intended polyethylene trial. Cement was removed from around the femur. I brought the knee into extension and manually pressurized the construct by pushing on the heel while the cement dried. The knee was bathed in a dilute mixture of betadine and peroxide. A mixture of Ropivacaine, Epinephrine, Clonidine and Toradol was infiltrated throughout the soft tissues into structures including the VMO, patellar tendon, quadriceps t endon, MCL and femoral periosteum. A low adductor canal block was also performed using this mixture unless one had been placed preoperatively by anesthesia. The knee was copiously irrigated with pulse lavage. Once cement had been allowed to dry the knee was again trialed. Range of motion was assessed by ensuring the knee could achieve full extension and assessing maximum passive knee flexion by elevating the femur and allowing the heel to passively fall towards the buttock. Gap symmetry was assessed by stressing the medial and lateral compartments in both extension and flexion. Laxity was assessed in both extension and flexion and the polyethylene trial was adjusted with shims as necessary. Patellar tracking was assessed with knee flexion. The tourniquet was let down and the polyethylene trial was removed. I inspected the knee inspected for excess cement and any residual bleeding. Once hemostasis was achieved I inserted the final polyethylene and ensured appropriate engagement of the dovetail locking mechanism.?? The arthrotomy was closed with absorbable interrupted suture ensuring that this extended to the top of the arthrotomy. This was backed up with running barbed suture throughout the arthrotomy. The skin was closed with 2-0 and 3-0 sutures. Surgical glue was applied and a soft dressing was placed.?The sponge, instrument and needle counts were reported as being correct at the end of the case.??No obvious complications occurred. The patient was transferred from the operating table back to a stretcher. The patient emerged from anesthesia without difficulty and was taken to the PACU in a stable condition.? Plan for aftercare: * Weightbearing as tolerated * Aspirin 81 twice per day for DVT prophylaxis for the next week. Restart Xarelto 7 days postoperatively 20 mg per day * Has had a prior anaphylactic reaction to ibuprofen. We will use meloxicam for NSAIDs * Multimodal pain regimen with no IV opioids ordered * Anticipate discharge home later today as patient is very eager to return home for mother's day weekend * Follow up at [facility] in [facility] weeks * Detailed postoperative instructions available at [email or web address]
[2023-09-02] MEDS: ONDANSETRON 4 MG/2 ML INJ (13:37)
--- NOTE | 2023-09-02 13:46 | SUR.PHASEI ---
Hospital ice machine applied and covering right lower extremity without difficulty
[2023-09-02] MEDS: OXYCODONE IR 5 MG TABLET PO ×2 (13:55→19:57)
--- NOTE | 2023-09-02 14:44 | PC.NURSE ---
Patient is alert and oriented x4, she had a total r.knee surgery. Dressing is aquacel with margo wrap. Patient states that she is having some discomfort, was given some oxycodone in pacu and has her own ice machine on her knee. She denies any numbness or tingling to her leg. IVF infusing and patient is comfortable. No urge to void at this time. Resting comfortably.
[2023-09-02] MEDS: ACETAMINOPHEN 325 MG TABLET 650 MG PO ×2 (15:11→21:44)
--- NOTE | 2023-09-02 16:10 | PT.IIE ---
Current Diagnoses Unilateral primary osteoarthritis, right knee (09/02/23) Surgery Performed Operation Date: 09/02/23 10:45 Actual Procedures p Total Knee Arthroplasty(Right) - Haseeb Patrick MD Surgical History (Last Updated 08/23/23 @ 13:29 by Anna Carver, RN) History of esophagogastroduodenoscopy (EGD) History of hysterectomy History of lumbar spinal fusion (07/23/22) History of surgery (03/2016) History of surgical procedure Hx of arthroscopy of right knee Hx of bilateral cataract extraction (2020) Hx of colonoscopy Hx of tonsillectomy Hx of tubal ligation S/P epidural steroid injection Medical History (Last Updated 07/12/22 @ 11:07 by Anna Carver, MARY) Anxiety Asthma Current use of keno terminal operator anticoagulation Depression Diverticulosis DVT (deep venous thrombosis) (~2016) GERD (gastroesophageal reflux disease) History of COVID-19 (10/2021) HTN (hypertension) Palpitations Pancreatic cancer (2015) Pericarditis Presence of device Pulmonary embolism (~2016) Sleep apnea Spinal stenosis Physical Therapy Inpatient Evaluation/Re-Eval M1 PT/OT-IP Prior Functional Status Start: 09/02/23 17:40 Freq: NEEDED Status: Active Protocol: Document 09/02/23 16:10 AB (Rec: 09/02/23 17:53 AB [id number]) Medical Review Prior Functional Status Medical History Reviewed Yes Communication able to make needs known but with some drowsiness needing repeated instructions and increase time to respond Mobility and Gait pt stated that she was independent with all mobilities and ambulation without AD Social History Household Members spouse Living Arrangements Mobile home Number of Floors (Floors) One Floor Number of Stairs To Enter/Railing? ramp to enter Home Environment High Toilet,Walk in Shower, Built-In Shower Seat Home Equipment Front Wheel Walker,Hand Held Shower,Grab Bars In Shower M2 PT-IP Current Condition Start: 09/02/23 17:40 Freq: NEEDED Status: Active Protocol: Document 09/02/23 16:10 AB (Rec: 09/02/23 17:53 AB [id number]) Physical Therapy Current Condition Current Condition Evaluation Date 09/02/23 Treatment Diagnosis s/p R TKA; difficulty in walking Onset Date 09/02/23 M3 PT-IP Subjective Start: 09/02/23 17:40 Freq: NEEDED Status: Active Protocol: Document 09/02/23 16:10 AB (Rec: 09/02/23 17:53 AB [id number]) Subjective Physical Therapy Visit Type Type Initial Evaluation Visit Start Time 16:10 Visit Stop Time 17:00 Number of POLYMER MATERIALS CONSULTANT Visits 50 Physical Therapy Visit Comments Patient Comments agreeable to do PT Therapy Pain Assessment Pain When Pain Assessed At Rest Pain Present Pain Present Pain Reported Location Right Knee Intensity 2 Scale Used Numeric (0 - 10) Pain Behaviors Guarding Pain Management Techniques Apply Cold,Distraction, Modification of Treatment,Re- positioning,Timing of Activity with Medications M4 PT-IP Mobility and Gait Start: 09/02/23 17:40 Freq: NEEDED Status: Active Protocol: Document 09/02/23 16:10 AB (Rec: 09/02/23 17:53 AB [id number]) PT-Bed Mobility Assessment Supine to Sit Supine to Sit Standby Assistance Sit to Supine Sit to Supine Standby Assistance PT-Transfer Assessment Sit to and From Stand Sit to and from Stand Minimal Assistance,1 Person Assistance,Use of Upper Extremities Equipment Transfer Assistive Device Gait Belt,Front Wheeled Walker Orthotic/Prosthetic Devices or Brace: No Transfers Transfer Destination Toilet Transfer Technique ambulated Transfer Ability Level of Assist Minimal Assistance,Moderate Assistance,1 Person Assistance ,Use of Upper Extremities Comments Mobility Comments pt supine in bed and agreeable to do PT. obtained PLOF and home set up from pt. post-op folder provided and reviewed contents. pt requested to use the toilet. BP in supine 124/ 73. O2 sat at RA 92% cued for deep breathing HR: 84. pt completed R LE heel slides prior to mobility. pt completed supine to sit SBA . required increase time to complete task. pt completed sit to stand from EOB mod A and max cues. pt ambulated to the toilet using FWW min A and cues. able to maintain standing using fWW for support while assisted with brief management. pt completed sit to stand from the toilet using grab bar mod A and cues. pt ambulated back to bed using FWW min A and cues. pt requested to just go back to bed. educated pt regarding sit<> stand techniques. pt completed x 3 reps requiring initial mod A but able to complete with only min A on last rep. pt completed sit to supine SBA . positioned pt in bed. call light and table placed within reach. set up pt for dinner. Gait Assessment Gait Gait Assistance Required: Minimum Assistance Distance (Feet) 20 Able to Maintain Weight Bearing Status Yes During Gait Assistive Devices Assistive Device Gait Belt,Front Wheeled Walker Orthotic/Prosthetic Devices or Brace: No Gait Deviations General Gait Pattern Antalgic,Decreased Stride Length,Decreased Feet Clearance Factors Limiting Gait Function Factors Limiting Gait Function Decreased Activity Tolerance, Decreased Strength,Difficulty Following Directions,Limited Range of Motion,Pain,Poor Balance,Poor Safety Awareness PT-Balance Assessment Sitting Balance and Reactions Static Sitting Balance Ability Good Dynamic Sitting Balance Ability Good Standing Balance and Reactions Static Standing Balance Ability Fair Dynamic Standing Balance Ability Fair Device Used FWW M5 PT-IP Objective Assessments Start: 09/02/23 17:40 Freq: NEEDED Status: Active Protocol: Document 09/02/23 16:10 AB (Rec: 09/02/23 17:53 AB [id number]) Orientation Orientation/Cognition Level of Alertness Alert Orientation Name,Place,Situation Language Function Ability No Deficits Noted Safety Awareness Decreased Safety Awareness Memory Description No Deficits Noted Gross Range of Motion Lower Extremity ROM Assessment Right Impaired Impairments R knee flexion: ~ 40 deg R knee extension: ~ 10 deg less to 0 Strength Lower Extremity Strength Assessment Right Impaired Knee 3+/5 Coordination Assessment Gross Coordination Gross Coordination WNL Sensation Assessment Sensation Gross Sensation WNL Muscle Tone Muscle Tone WNL Yes M6 PT-IP Treatment Start: 09/02/23 17:40 Freq: NEEDED Status: Active Protocol: Document 09/02/23 16:10 AB (Rec: 09/02/23 17:53 AB [id number]) Physical Therapy Treatment Exercises Exercises Heel Slides Education Education Provided Precautions,Weight Bearing Status,Post-Op Packet,Safety M7 PT-IP Assessment and Plan Start: 09/02/23 17:40 Freq: NEEDED Status: Active Protocol: Document 09/02/23 16:10 AB (Rec: 09/02/23 17:53 AB [id number]) PT Summary Assessment and Plan Potential Rehabilitation Potential Fair Status of Condition at Evaluation Evolving Summary Impairments Pain,ROM,Strength,Balance, Coordination,Sensation,Tone, Cognition,Bed Mobility, Transfers,Gait,Activity Tolerance Assessment Summary pt is a 78 y/o F s/p R TKA POD 0. pt is WBAT on RLE. pt requiring min A with mobility using FWW. pt plans to go home and spouse to assist. caregiver training set up for tomorrow at ~ 9 am. will continue to assess progress. Goals Bed Mobility Goal Independent Transfer Goal Independent,Front Wheeled Walker Gait Goal Independent,Front Wheel Walker Gait Distance 200 Other Goals improve transfers and ambulation using LRAD ~ 300 ft mod I Days to Meet Goals 5 Frequency of Treatment Frequency Of Treatment Twice a Day Treatment Plan Physical Therapy Treatment Plan Bed Mobility Training,Transfer Training,Gait Training, Therapeutic Exercise,Balance Retraining,Post Op Education, Discharge Planning,Hot or Cold Pack,Neuromuscular Re-ed, Coordination Retraining,Manual Therapy Other Recommendations and Next Treatment caregiver trainin09/03/23 @ [facility] 9 am Weight Bearing Status Weight Bearing Status Weight Bear as Tolerated Allowed Weight Bearing Amount (enter % RLE WBAT or #) (%) Recommendations To Nursing Amount of Assist Needed 1 Person Assist Discharge Recommendations PT Discharge Recommendations Home with Assistance, Outpatient PT Transportation Needs at Discharge Private Vehicle
[2023-09-02] MEDS: LACTATED RINGERS 1,000 ML 100 ML IV (17:17)
--- NOTE | 2023-09-02 17:18 | P.PN_ITS ---
Subjective Subjective Interval history: Patient seen postoperatively. Resting comfortably. Ambulated with Physical therapy and made good progress. She is going to remain in the hospital overnight. She has intact motor and sensory function in her peroneal nerve distribution. Her dressing was clean dry and intact. Exam Vital Signs (past 8 hours): - 09/02/23 09:50 09/02/23 13:23 09/02/23 13:28 Temperature 98.5 F 98.2 F Pulse Rate 79 83 77 Respiratory Rate 18 13 12 Blood Pressure 144/82 H 133/68 139/72 Pulse Oximetry 97 96 96 Oxygen Delivery Method Room Air Nasal Cannula Nasal Cannula Oxygen Flow Rate 2 2 09/02/23 13:33 09/02/23 13:45 09/02/23 14:10 Temperature 97.8 F Pulse Rate 78 78 79 Respiratory Rate 13 11 L 16 Blood Pressure 143/80 H 157/75 H 154/77 H Pulse Oximetry 96 97 95 Oxygen Delivery Method Room Air Nasal Cannula Oxygen Flow Rate 2 2 09/02/23 15:45 09/02/23 16:15 Temperature 98.0 F 98.2 F Pulse Rate 81 79 Respiratory Rate 16 18 Blood Pressure 132/59 L 129/68 Pulse Oximetry 91 92 Oxygen Delivery Method Oxygen Flow Rate 2 0 Oxygen Delivery Method Nasal Cannula Oxygen Flow Rate 0 PFSH Medical History (Updated 07/12/22 @ 11:07 by Anna Carver RN) Pericarditis Palpitations History of COVID-19 (10/2021) Anxiety Spinal stenosis Diverticulosis GERD (gastroesophageal reflux disease) Pulmonary embolism (~2016) Sleep apnea Asthma Pancreatic cancer (2015) Presence of device Depression HTN (hypertension) Current use of intermediate teacher anticoagulation DVT (deep venous thrombosis) (~2016) Surgical History (Updated 08/23/23 @ 13:29 by Anna Carver RN) History of lumbar spinal fusion (07/23/22) Hx of colonoscopy History of esophagogastroduodenoscopy (EGD) Hx of tubal ligation Hx of arthroscopy of right knee History of surgery (03/2016) Hx of bilateral cataract extraction (2020) History of surgical procedure Hx of tonsillectomy History of hysterectomy S/P epidural steroid injection Social History household members: spouse Smoking Status: Never smoker alcohol intake: former Quality VTE Deep Vein Thrombosis/Pulmonary Embolism Present on Admission: No
--- NOTE | 2023-09-02 17:21 | OT.IPNOTE ---
Pt eating dinner and able to touch base with her regarding OT equipment and needs. Pt states her to assist her with all needs and feels no OT indicated at this time. NO charge
[2023-09-02] MEDS: TRAMADOL 50 MG TABLET PO (18:21)
[2023-09-02] MEDS: DOCUSATE 100 MG CAPSULE PO (21:44)
[2023-09-02] MEDS: GABAPENTIN 300 MG CAPSULE PO (21:44)
[2023-09-02] MEDS: TRAZODONE 50 MG TABLET 100 MG PO (21:44)
[2023-09-02] MEDS: ASPIRIN EC 81 MG TABLET PO (21:44)
[2023-09-02] MEDS: PANTOPRAZOLE DR 20 MG TABLET PO (21:45)
[2023-09-03 00:56] VITALS: BP 107/71; PULSE 85; RESP 16; TEMP 36.5; O2SAT 93
[2023-09-03] MEDS: ACETAMINOPHEN 325 MG TABLET 650 MG PO ×2 (02:35→08:43)
[2023-09-03] MEDS: CEFAZOLIN 2 GM/100 ML PREMIX 100 ML IV (02:35)
[2023-09-03] MEDS: OXYCODONE IR 5 MG TABLET PO ×2 (02:35→11:22)
[2023-09-03 05:10] VITALS: BP 136/69; PULSE 79; RESP 18; TEMP 36.8; O2SAT 94
[2023-09-03 06:08] LABS: Hematocrit 33.2 % (36-46); Hemoglobin 11.2 g/dL (12.0-16.0)
--- NOTE | 2023-09-03 06:49 | PM.DS.1 ---
History of Present Illness History of Present Illness Chief complaint: OPB Narrative: Corazon is a pleasent 78 year old female who is POD#1 s/p right TKA by Dr. Patrick. The patient reports she is doing well today. Pain is moderate but well controlled w/ oral pain medication. She was able to work with PT yesterday and ambulate, has not seen PT yet today. Urinating well without issue. She did have a purewik in place last night. She has postop physical therapy appointments set up already and she has picked up her postop pain medications already as well. Would like to d/c to home today with her . Denies fever, chills, chest pain, SOB, nausea, vomiting. Discharge Providers Provider Discharge Date: 09/03/23 Primary care physician: Kelly Guzman MD Consults: 09/02/23 06:00 Consult to Anesthesiology Routine Comment: Consulting Provider: Anesthesiologist Reason for consultation: Regional block for post operative pain control 09/02/23 14:10 Consult to Discharge Planning Routine Comment: Consult to Occupational Therapy Evaluate & Treat Comment: Physician Instructions: Evaluate and treat Consult to Physical Therapy Evaluate & Treat Comment: Physician Instructions: postop TKA protocol Discharge provider: Andreina Hu PA-C Summary Hospital Course Discharge Diagnosis: right knee OA s/p R TKA Hospital Course: uncomplicated hospital course Exam Vital Signs (past 8 hours): - 09/03/23 00:56 09/03/23 05:10 Temperature 97.7 F 98.3 F Pulse Rate 85 79 Respiratory Rate 16 18 Blood Pressure 107/71 136/69 Pulse Oximetry 93 94 Oxygen Flow Rate 0 0 Oxygen Delivery Method Nasal Cannula Oxygen Flow Rate 0 Narrative Exam Narrative: Lying in bed, comfortably resting during the interview today. Ice machine on and functioning. SCDs on and functioning. Resp Effort & Inspection: normal respiratory effort and able to speak in complete sentences Cardio Rate: regular rate Other: Brisk capillary refill Skin Other: Clean, dry, intact Aquacel dressing in place over the right anterior knee area. No drainage. Neuro General: patient alert, patient awake and patient oriented x3 Other: Gross sensation intact throughout bilateral lower extremities Extrem Other: 5/5 strength with DF, PF, EHL. Calves soft and compressible bilaterally. Objective Labs 09/03/23 05:20 Labs: Laboratory Results - last 24 hr 09/03/23 05:20 Hgb 11.2 L Hct 33.2 L PFSH Medical History (Updated 07/12/22 @ 11:07 by Anna Carver RN) Pericarditis Palpitations History of COVID-19 (10/2021) Anxiety Spinal stenosis Diverticulosis GERD (gastroesophageal reflux disease) Pulmonary embolism (~2016) Sleep apnea Asthma Pancreatic cancer (2015) Presence of device Depression HTN (hypertension) Current use of custodial anticoagulation DVT (deep venous thrombosis) (~2016) Surgical History (Updated 08/23/23 @ 13:29 by Anna Carver RN) History of lumbar spinal fusion (07/23/22) Hx of colonoscopy History of esophagogastroduodenoscopy (EGD) Hx of tubal ligation Hx of arthroscopy of right knee History of surgery (03/2016) Hx of bilateral cataract extraction (2020) History of surgical procedure Hx of tonsillectomy History of hysterectomy S/P epidural steroid injection Social History household members: spouse Smoking Status: Never smoker alcohol intake: former Discharge Assessment & Plan Assessment and Plan Assessment: stable s/p R TKA Plan of Treatment: 1) plan to discharge to home today with family/ pending final PT evaluation. 2) continue multimodal pain management with ice to the knee for additional pain control. His ice machine and postop pain medication at home already. 3) patient will resume Xarelto 7 days postop. 4) Start outpatient physical therapy to work on range of motion and mobility. 5) keep dressing intact, clean, dry until 2 week postop appointment. No soaking the incision site in pools or tubs. No topical ointments or creams to the incision site. 5) Follow up at [facility] in 2 weeks for a postop appointment and wound check. All patient's questions were answered, she demonstrates understanding and is in agreement with the plan. Call our office if any questions or concerns arise. Discharge Plan Discharge Plan Patient Disposition: Home Provider Discharge Comment: [email or web address] Discharge orders & Medications Discharge Orders: Discharge (Order); Ordered 09/03/23 Ordered By: Andreina Hu Prescriptions: New docusate sodium 100 mg Capsule 100 mg PO BID Qty: 30 0RF oxycodone 5 mg Tablet 5 mg PO Q4-6H PRN (Reason: Pain, Severe (7-10)) Qty: 30 0RF Continued losartan 50 mg Tablet 50 mg PO BID lorazepam 0.5 mg Tablet 0.5 - 1 mg PO DAILY PRN (Reason: Anxiety) trazodone 100 mg Tablet 100 mg PO BEDTIME gabapentin 300 mg Capsule 300 mg PO BID omeprazole 20 mg Tablet,Delayed Release (Dr/Ec) 20 mg PO BID Creon 24,000-76,000 -120,000 unit Capsule,Delayed Release(Dr/Ec) 2 cap PO TID Rx Instructions: administer with meals and/or snacks escitalopram oxalate 10 mg Tablet 10 mg PO DAILY acetaminophen 325 mg Tablet 650 mg PO Q6H PRN (Reason: fever or pain) Qty: 240 0RF docusate sodium 100 mg Capsule 100 mg PO BID PRN (Reason: constipation) Qty: 60 2RF amlodipine 2.5 mg Tablet 2.5 mg PO DAILY Azo Bladder Control 300 mg Capsule 1 cap PO BID Xarelto 20 mg Tablet 20 mg PO QPM Qty: 90 0RF Rx Instructions: must administer with evening meal MAY RESUME XARELTO 7 DAYS POST-OP. Follow up/Referrals: Haseeb Patrick MD [Physician] - (Follow-up as scheduled at [facility]. Appointment 09/14/2023 at 9:50 a.m. with NEETU Hoang.) Kelly Guzman MD [Primary Care Provider] - Diet/Activity/Treatments Diet: Diet as Tolerated Activity: Weight-bearing as tolerated. Cold/Heat Therapy: Ice to the knee for additional pain control. Skin/Wound/Dressing Care Report to your healthcare provider any signs of infection, such as:: chills, fever, night sweats, unusual drainage and unusual redness Dressing: Keep dressing intact, clean and dry until 2 week post-op appointment. No soaking the incision site in pools or tubs. No topical ointments or creams to the incision site. Visit Report/Discharge Packet Instructions: DI for Knee Replacement Stand Alone Forms: Patient Portal/API Discharge Data Primary Care Provider: Kelly Guzman Attending Provider: Haseeb Patrick Quality VTE Deep Vein Thrombosis/Pulmonary Embolism Present on Admission: No
[2023-09-03] MEDS: polyethylene glycoL 3350 17 GM POWD.PACK PO (08:43)
[2023-09-03] MEDS: TRAMADOL 50 MG TABLET PO (08:44)
[2023-09-03] MEDS: MELOXICAM 7.5 MG TABLET 15 MG PO (08:45)
[2023-09-03] MEDS: GABAPENTIN 300 MG CAPSULE PO (08:45)
[2023-09-03] MEDS: ESCITALOPRAM 10 MG TABLET PO (08:45)
[2023-09-03] MEDS: ASPIRIN EC 81 MG TABLET PO (08:45)
[2023-09-03] MEDS: DOCUSATE 100 MG CAPSULE PO (08:45)
[2023-09-03] MEDS: PANTOPRAZOLE DR 20 MG TABLET PO (08:45)
--- NOTE | 2023-09-03 08:57 | PT.IPTN ---
Current Diagnoses Unilateral primary osteoarthritis, right knee (09/02/23) Surgery Performed Operation Date: 09/02/23 10:45 Actual Procedures p Total Knee Arthroplasty(Right) - Haseeb Patrick MD Physical Therapy Treatment Note M2 PT-IP Current Condition Start: 09/02/23 17:40 Freq: NEEDED Status: Active Protocol: Document 09/02/23 16:10 AB (Rec: 09/02/23 17:53 AB [id number]) Physical Therapy Current Condition Current Condition Evaluation Date 09/02/23 Treatment Diagnosis s/p R TKA; difficulty in walking Onset Date 09/02/23 M3 PT-IP Subjective Start: 09/02/23 17:40 Freq: NEEDED Status: Active Protocol: Document 09/03/23 09:34 TS (Rec: 09/03/23 09:43 TS [id number]) Subjective Physical Therapy Visit Type Type Treatment Note Visit Start Time 08:57 Visit Stop Time 09:30 Number of DIRECTOR OF EMERGENCY NURSING Visits 1 Physical Therapy Visit Comments Patient Comments Pt found resting in bed, is agreeable to PT. Therapy Pain Assessment Pain When Pain Assessed At Rest Pain Present Pain Present Pain Reported M4 PT-IP Mobility and Gait Start: 09/02/23 17:40 Freq: NEEDED Status: Active Protocol: Document 09/03/23 09:34 TS (Rec: 09/03/23 09:43 TS [id number]) PT-Bed Mobility Assessment Supine to Sit Supine to Sit Contact Guard Assistance Scooting Scooting to Edge of Bed Standby Assistance PT-Transfer Assessment Sit to and From Stand Sit to and from Stand Minimal Assistance,1 Person Assistance,Use of Upper Extremities Equipment Transfer Assistive Device Gait Belt,Front Wheeled Walker Orthotic/Prosthetic Devices or Brace: No Comments Mobility Comments Pt performed quad sets, heel slides and passive extension prior to mobility. Supine to sit CGA for RLE to EOB. sposue donned gait belt. STS from chair with FWW Avinash form spouse.She ambulated to toilet , spouse assisted with pericare. STS form Avinash with FWW. She ambulated ~50' in room CGA/SBA with step to gait . Pt was left in chair, all needs met. Gait Assessment Gait Gait Assistance Required: Standby Assistance,Contact Guard Assist Distance (Feet) 50 Able to Maintain Weight Bearing Status Yes During Gait Assistive Devices Assistive Device Gait Belt,Front Wheeled Walker Orthotic/Prosthetic Devices or Brace: No Gait Deviations General Gait Pattern Antalgic,Decreased Stride Length,Decreased Feet Clearance Factors Limiting Gait Function Factors Limiting Gait Function Decreased Activity Tolerance, Decreased Strength,Difficulty Following Directions,Limited Range of Motion,Pain,Poor Balance,Poor Safety Awareness PT-Balance Assessment Sitting Balance and Reactions Static Sitting Balance Ability Good Dynamic Sitting Balance Ability Good Standing Balance and Reactions Static Standing Balance Ability Fair Dynamic Standing Balance Ability Fair Device Used FWW M5 PT-IP Objective Assessments Start: 09/02/23 17:40 Freq: NEEDED Status: Active Protocol: Document 09/02/23 16:10 AB (Rec: 09/02/23 17:53 AB [id number]) Orientation Orientation/Cognition Level of Alertness Alert Orientation Name,Place,Situation Language Function Ability No Deficits Noted Safety Awareness Decreased Safety Awareness Memory Description No Deficits Noted Gross Range of Motion Lower Extremity ROM Assessment Right Impaired Impairments R knee flexion: ~ 40 deg R knee extension: ~ 10 deg less to 0 Strength Lower Extremity Strength Assessment Right Impaired Knee 3+/5 Coordination Assessment Gross Coordination Gross Coordination WNL Sensation Assessment Sensation Gross Sensation WNL Muscle Tone Muscle Tone WNL Yes M6 PT-IP Treatment Start: 09/02/23 17:40 Freq: NEEDED Status: Active Protocol: Document 09/03/23 09:34 TS (Rec: 09/03/23 09:43 TS [id number]) Physical Therapy Treatment Exercises Exercises Quad Sets,Heel Slides,Passive Knee Extension Hang Education Education Provided Precautions,Weight Bearing Status,Post-Op Packet,Safety M7 PT-IP Assessment and Plan Start: 09/02/23 17:40 Freq: NEEDED Status: Active Protocol: Document 09/03/23 09:34 TS (Rec: 09/03/23 09:43 TS [id number]) PT Summary Assessment and Plan Potential Rehabilitation Potential Good Summary Impairments Pain,ROM,Strength,Balance, Coordination,Sensation,Tone, Cognition,Bed Mobility, Transfers,Gait,Activity Tolerance Progress Towards Goals Progressing Toward Goals Assessment Summary Corazon is making good progress with her mobility. She is CGA for bed mobility. She performed STS x2 with Avinash and use of FWW. She progressed her gait to ~50'SBA/CGA with FWW. Pt is recommending pt return home with 15/11 assist and outpatient PT. Goals Bed Mobility Goal Independent Transfer Goal Independent,Front Wheeled Walker Gait Goal Independent,Front Wheel Walker Gait Distance 200 Other Goals improve transfers and ambulation using LRAD ~ 300 ft mod I Days to Meet Goals 5 Frequency of Treatment Frequency Of Treatment Twice a Day Treatment Plan Physical Therapy Treatment Plan Bed Mobility Training,Transfer Training,Gait Training, Therapeutic Exercise,Balance Retraining,Post Op Education, Discharge Planning,Hot or Cold Pack,Neuromuscular Re-ed, Coordination Retraining,Manual Therapy Weight Bearing Status Weight Bearing Status Weight Bear as Tolerated Allowed Weight Bearing Amount (enter % RLE WBAT or #) (%) Recommendations To Nursing Amount of Assist Needed 1 Person Assist Discharge Recommendations PT Discharge Recommendations Home with 15/11 Assist Available,Outpatient PT Transportation Needs at Discharge Private Vehicle
[2023-09-03 09:38] VITALS: BP 149/76; PULSE 82; RESP 14; TEMP 36.6; O2SAT 96
--- NOTE | 2023-09-03 10:42 | CM.DANOTE ---
Initial DCP Assessment Note Pt is a 78yo female, resident of [place], now POD#1 from Rt knee surgery by Dr Patrick PCP: Kelly Guzman Payer: SING[employer]/Ken jensen [place] Reviewed chart, pt discussed in multidisciplinary rounds this morning. Therapy has cleared pt for return home w/family to assist and pt has planned for home, DC order from Ortho has already been initiated this morning. No barriers identified at this time to patient's safe discharge home w/family to assist; close outpatient f/u recommended. CM team will plan to follow closely in case any DC needs or concerns arise. LETICIA Rivera Discharge Planning/Care Management CM Discharge Assessment Start: 09/03/23 10:38 Freq: Status: Active Protocol: Document 09/03/23 10:39 JENNIFER (Rec: 09/03/23 10:42 JENNIFER [id number]) Discharge Planning Assessment Assigned Progressive Care Nurse LETICIA Marroquin DPOA/Assigned Designee Name Wayne Gibson, spouse Contact Information [phone] Advance Directives? Yes: POLST Advance Directives on File Yes History Provided By Patient,Medical Record Prior Living Arrangements Mobile home Household Members spouse Type of transporation used prior to Drives own vehicle admit Independent with ADL's Yes Is patient alert and oriented? Yes Patient/Family Preference OP PT Therapy Barriers to Discharge No Discharge Plan Home Transportation Arrangement Spouse Referrals Initiated None needed
== END 2023-09-03 12:42 | disposition home or self-care (01) ==
LOC: OR 09:19 → AC 09:21
PROVIDERS: PCP Family Medicine; Referring Provider Orthopaedic Surgery Adult Reconstructive Orthopaedic Surgery; Visit Provider Orthopaedic Surgery Adult Reconstructive Orthopaedic Surgery
PROC: 0SRC0JZ Replacement of Right Knee Joint with Synthetic Substitute, Open Approach (ICD-10-PCS; CPT 27447; principal; 2023-09-02 10:45)
DX: M17.11 Unilateral primary osteoarthritis, right knee (principal); M25.761 Osteophyte, right knee
CPT/HCPCS: 27447; 36415; 73560; 85014; 85018; 97116; 97162; 97530; C1776; C9290; J0171; J0690; J1100; J1170; J2405; J2704; J3010